=== PATIENT | male | born 1990 | race Hispanic/Latino ===

== ENCOUNTER 2017-11-17 15:07 | Emergency (ER) | payer SELFPAY ==
[~2017-11-17] VITALS: Ht 175.3 cm; Wt 97.1 kg
[2017-11-17] MEDS ORDERED: KETOROLAC TROMETHAMINE 60 MG/2 ML VIAL IM ONE (15:30)
[2017-11-17] MEDS ORDERED: CYCLOBENZAPRINE HCL 10 MG TAB PO ONE (15:30)
[2017-11-17] MEDS ORDERED: HYDROCODONE/APAP 10MG-325MG TAB PO ONE (15:30)
[2017-11-17] MEDS ORDERED: DEXAMETHASONE SOD PHOS 10 MG/1 ML VIAL INJ ONE (15:45)
[2017-11-17 17:03] VITALS: BP 127/88
== END 2017-11-17 17:09 | disposition home or self-care (01) ==
LOC: ER 15:07
DX: S39.012A Strain of muscle, fascia and tendon of lower back, initial encounter (principal)
CPT/HCPCS: 99282; J1100; J1885

== ENCOUNTER 2018-02-22 16:01 | Emergency (ER) | payer SELFPAY ==
[~2018-02-22] VITALS: Ht 175.3 cm; Wt 97.1 kg
[2018-02-22] MEDS ORDERED: KETOROLAC TROMETHAMINE 60 MG/2 ML VIAL IM ONE (16:15)
[2018-02-22] MEDS ORDERED: HYDROCODONE/APAP 7.5MG-325MG 1 EA TAB PO ONE (16:15)
[2018-02-22] MEDS ORDERED: DEXAMETHASONE SOD PHOS 10 MG/1 ML VIAL IV ONE (16:15)
[2018-02-22] MEDS ORDERED: CYCLOBENZAPRINE HCL 10 MG TAB PO ONE (18:30)
== END 2018-02-22 19:00 | disposition home or self-care (01) ==
LOC: ER 16:01
DX: M54.42 Lumbago with sciatica, left side (principal); M54.41 Lumbago with sciatica, right side; M54.16 Radiculopathy, lumbar region; X50.9XXA Other and unspecified overexertion or strenuous movements or postures, initial encounter; Y99.0 Civilian activity done for income or pay; F17.210 Nicotine dependence, cigarettes, uncomplicated
CPT/HCPCS: 99283; J1100; J1885

== ENCOUNTER 2020-07-10 20:06 | Emergency (ER) | payer SELFPAY ==
[~2020-07-10] VITALS: Ht 170.2 cm; Wt 86.2 kg
[2020-07-10] MEDS ORDERED: ACETAMINOPHEN 325 MG TAB PO ONE (20:30)
[2020-07-10] MEDS ORDERED: KETOROLAC TROMETHAMINE 30 MG/ML VIAL IM PRN (20:30)
[2020-07-10] MEDS ORDERED: LIDOCAINE 4% PATCH TP ONE (20:45)
[2020-07-10] MEDS ORDERED: LIDOPATCH1 EACH TOP (20:48)
[2020-07-11] MEDS ORDERED: LIDOCAINE 4% PATCH TP SCH (09:00)
== END 2020-07-10 21:28 | disposition home or self-care (01) ==
LOC: ER 20:12
DX: M54.5 Low back pain (principal); J45.909 Unspecified asthma, uncomplicated
CPT/HCPCS: 99283; J1885

== ENCOUNTER 2020-07-20 12:01 | Emergency (ER) | payer SELFPAY ==
[~2020-07-20] VITALS: Ht 170.2 cm; Wt 86.2 kg
[~2020-07-20 12:01] MED LIST: LIDOPATCH1 EACH TOP
== END 2020-07-20 17:16 | disposition home or self-care (01) ==
LOC: ER 14:20
DX: M54.5 Low back pain (principal); J45.909 Unspecified asthma, uncomplicated; F17.210 Nicotine dependence, cigarettes, uncomplicated
CPT/HCPCS: 99283

== ENCOUNTER 2021-10-20 20:09 | Emergency (ER) | payer SELFPAY ==
[~2021-10-20] VITALS: Ht 170.2 cm; Wt 86.2 kg
== END 2021-10-20 21:54 | disposition home or self-care (01) ==
LOC: ER 21:36
DX: F32.A Depression, unspecified (principal); J45.909 Unspecified asthma, uncomplicated
CPT/HCPCS: 99282

== ENCOUNTER 2024-05-05 10:39 | Emergency (ER) | payer SELFPAY ==
[~2024-05-05] VITALS: Ht 175.3 cm; Wt 90.7 kg
[2024-05-05 10:53] VITALS: PULSE 64; RESP 16
[2024-05-05 11:17] VITALS: TEMP 98.3
[2024-05-05 11:27] LABS: BASOPHILS # (AUTO) 0.1 (0.0-0.1); BASOPHILS % 0.3 % (0.0-1.0); EOSINOPHILS # (AUTO) 0.1 (0.0-0.4); EOSINOPHILS % 0.9 % (0.0-6.0); HEMATOCRIT 47.8 % (38.2-49.6); HEMOGLOBIN 15.7 g/dL (14.0-18.0); LYMPHOCYTES # (AUTO) 2.1 (1.0-3.2); LYMPHOCYTES % 14.6 % (18.0-39.1); MEAN CORPUSCULAR HEMOGLOBIN 30.3 pg (28-32); MEAN CORPUSCULAR HGB CONC 32.8 g/dL (31-35); MEAN CORPUSCULAR VOLUME 92.1 fL (81-99); MONOCYTES # (AUTO) 0.9 (0.2-0.8); MONOCYTES % 6.1 % (4.4-11.3); NEUTROPHILS # (AUTO) 11.4 (2.1-6.9); NEUTROPHILS % 77.7 % (38.7-80.0); PLATELET COUNT 309 x10e3/uL (140-360); RED BLOOD COUNT 5.19 x10e6/uL (4.3-5.7); RED CELL DISTRIBUTION WIDTH 13.1 % (11.7-14.4); WHITE BLOOD COUNT 14.69 x10e3/uL (4.8-10.8)
[2024-05-05] MEDS: SODIUM CHLORIDE 0.9% 1000ML 1,000 ML IV STA (11:29)
[2024-05-05] MEDS: ONDANSETRON HCL INJ 2MG/ML 2ML 2 MG/ML VIAL IV STA (11:29)
[2024-05-05 11:41] LABS: INR 0.96; PROTHROMBIN TIME 13.4 seconds (11.9-14.5)
[2024-05-05 11:42] LABS: PARTIAL THROMBOPLASTIN TIME 33.1 seconds (23.8-35.5)
[2024-05-05 11:52] LABS: ALBUMIN 4.4 g/dL (3.5-5.0); ALBUMIN/GLOBULIN RATIO 1.3 (0.8-2.0); ANION GAP 14.6 mmol/L (8-16); CALCIUM 9.6 mg/dL (8.4-10.2); CREATININE, SERUM 0.94 mg/dL (0.72-1.25); POTASSIUM 3.6 mmol/L (3.5-5.1); TOTAL PROTEIN 7.9 g/dL (6.5-8.1)
[2024-05-05 11:59] LABS: TROPONIN I 0.008 ng/mL (0-0.300)
[2024-05-05 12:00] LABS: AMPHETAMINES SCREEN,URINE POSITIVE (NEGATIVE); BENZODIAZEPINES SCREEN,URINE NEGATIVE (NEGATIVE); OPIATES SCREEN,URINE NEGATIVE (NEGATIVE); PHENCYCLIDINE SCREEN,URINE NEGATIVE (NEGATIVE)
[2024-05-05 12:01] LABS: CANNABINOIDS SCREEN,URINE NEGATIVE (NEGATIVE); COCAINE SCREEN,URINE NEGATIVE (NEGATIVE); METHADONE SCREEN, URINE NEGATIVE (NEGATIVE)
[2024-05-05] MEDS ORDERED: IOPAMIDOL 370 MG/ML 100 ML INFUS..BTL INJ ONE (12:10)
[2024-05-05 12:39] VITALS: PULSE 90; O2SAT 96
[2024-05-05 12:45] VITALS: BP 131/95
[2024-05-05] MEDS ORDERED: PANTOPRAZOLE SO40 MG PO (13:31)
[2024-05-05] MEDS ORDERED: DICYCLOMINE HCL20 MG PO (13:31)
[2024-05-05] MEDS ORDERED: ONDANSETRON ODT4 MG PO (13:31)
== END 2024-05-05 13:53 | disposition home or self-care (01) ==
LOC: ER 10:51
DX: R11.2 Nausea with vomiting, unspecified (principal); R10.10 Upper abdominal pain, unspecified; F15.10 Other stimulant abuse, uncomplicated; J45.909 Unspecified asthma, uncomplicated; M54.9 Dorsalgia, unspecified; G89.29 Other chronic pain; F17.200 Nicotine dependence, unspecified, uncomplicated
CPT/HCPCS: 36415; 71045; 74177; 80053; 80307; 82550; 83690; 83735; 84484; 85025; 85610; 85730; 93005; 99284; J2405; J2470; J7030; Q9967

== ENCOUNTER 2024-06-22 22:43 | Emergency (ER) | payer SELFPAY ==
[~2024-06-22] VITALS: Ht 175.3 cm; Wt 99.8 kg
[~2024-06-22 22:43] MED LIST changes: +DICYCLOMINE HCL20 MG PO; +ONDANSETRON ODT4 MG PO; +PANTOPRAZOLE SO40 MG PO
[2024-06-22 22:47] VITALS: TEMP 98.4
[2024-06-22 23:04] LABS: BASOPHILS # (AUTO) 0.1 (0.0-0.1); BASOPHILS % 0.3 % (0.0-1.0); EOSINOPHILS # (AUTO) 0.2 (0.0-0.4); EOSINOPHILS % 1.2 % (0.0-6.0); HEMATOCRIT 48.2 % (38.2-49.6); HEMOGLOBIN 15.4 g/dL (14.0-18.0); LYMPHOCYTES # (AUTO) 3.1 (1.0-3.2); LYMPHOCYTES % 20.7 % (18.0-39.1); MEAN CORPUSCULAR HEMOGLOBIN 30.5 pg (28-32); MEAN CORPUSCULAR VOLUME 95.4 fL (81-99); MONOCYTES # (AUTO) 1.1 (0.2-0.8); MONOCYTES % 7.2 % (4.4-11.3); NEUTROPHILS # (AUTO) 10.3 (2.1-6.9); NEUTROPHILS % 70.2 % (38.7-80.0); PLATELET COUNT 278 x10e3/uL (140-360); RED BLOOD COUNT 5.05 x10e6/uL (4.3-5.7); RED CELL DISTRIBUTION WIDTH 13.2 % (11.7-14.4); WHITE BLOOD COUNT 14.71 x10e3/uL (4.8-10.8)
[2024-06-22] MEDS: FAMOTIDINE 20 MG/2 ML VIAL IV STA (23:07)
[2024-06-22] MEDS: SODIUM CHLORIDE 0.9% 1000ML 1,000 ML IV STA (23:07)
[2024-06-22] MEDS: ONDANSETRON HCL INJ 2MG/ML 2ML 2 MG/ML VIAL IV STA (23:07)
[2024-06-22 23:27] LABS: ALBUMIN 4.3 g/dL (3.5-5.0); ALBUMIN/GLOBULIN RATIO 1.3 (0.8-2.0); ANION GAP 16.9 mmol/L (8-16); BILIRUBIN,TOTAL 0.5 mg/dL (0.2-1.2); CALCIUM 9.3 mg/dL (8.4-10.2); CREATININE, SERUM 0.89 mg/dL (0.72-1.25); POTASSIUM 3.9 mmol/L (3.5-5.1); TOTAL PROTEIN 7.6 g/dL (6.5-8.1)
[2024-06-22 23:29] LABS: BACTERIA,URINE MODERATE /HPF; BILIRUBIN,URINE NEGATIVE (NEGATIVE); CLARITY,URINE CLEAR (CLEAR); COLOR,URINE YELLOW (YELLOW); EPITHELIAL CELLS,URINE FEW /LPF; GLUCOSE, URINE NEGATIVE (NEGATIVE); KETONES,URINE NEGATIVE (NEGATIVE); LEUKOCYTE ESTERASE ,URINE NEGATIVE (NEGATIVE); NITRITE,URINE NEGATIVE (NEGATIVE); PH,URINE 6.5 (5 - 7); PROTEIN,URINE DIPSTICK NEGATIVE (NEGATIVE); RBC,URINE 0-5 /HPF (0-5); URINE UROBILINOGEN 0.2 mg/dL (0.2 - 1); WBC,URINE (MAN) 0-5 /HPF (0-5)
[2024-06-22 23:30] LABS: MUCUS,URINE MANY (RARE)
[2024-06-23 01:13] VITALS: PULSE 77; RESP 17
[2024-06-23] MEDS ORDERED: ONDANSETRON ODT4 MG PO (01:23)
[2024-06-23] MEDS ORDERED: ULTRAM 50MG50 MG PO (01:23)
[2024-06-23] MEDS ORDERED: PROTONIX40 MG PO (01:23)
[2024-06-23] MEDS ORDERED: AMOX TR-K CLV1 EAC2 PO (01:23)
[2024-06-23 01:37] VITALS: BP 116/67; PULSE 81; RESP 16; TEMP 98.2; O2SAT 97
== END 2024-06-23 01:35 | disposition home or self-care (01) ==
LOC: ER 22:46
DX: R10.11 Right upper quadrant pain (principal); K80.20 Calculus of gallbladder without cholecystitis without obstruction; R11.2 Nausea with vomiting, unspecified; J45.909 Unspecified asthma, uncomplicated; M54.9 Dorsalgia, unspecified; G89.29 Other chronic pain
CPT/HCPCS: 36415; 74177; 80053; 81001; 83690; 85025; 99284; J2405; J7030

== ENCOUNTER 2024-08-10 18:51 | Emergency (ER) | payer OTHER ==
[~2024-08-10] VITALS: Ht 175.3 cm; Wt 99.8 kg
[~2024-08-10 18:51] MED LIST changes: +AMOX TR-K CLV1 EAC2 PO; +PROTONIX40 MG PO; +ULTRAM 50MG50 MG PO
[2024-08-10 19:02] VITALS: PULSE 64; RESP 20; TEMP 98
[2024-08-10] MEDS: ONDANSETRON HCL INJ 2MG/ML 2ML 2 MG/ML VIAL IV STA (19:17)
[2024-08-10] MEDS: Morphine 4mg INJECTION 4 MG/ML INJ IV STA (19:17)
[2024-08-10 19:28] LABS: BASOPHILS % 0.4 % (0.0-1.0); EOSINOPHILS # (AUTO) 0.1 (0.0-0.4); EOSINOPHILS % 1.1 % (0.0-6.0); HEMATOCRIT 41.8 % (38.2-49.6); LYMPHOCYTES # (AUTO) 2.2 (1.0-3.2); LYMPHOCYTES % 19.6 % (18.0-39.1); MEAN CORPUSCULAR HEMOGLOBIN 29.9 pg (28-32); MEAN CORPUSCULAR HGB CONC 33.5 g/dL (31-35); MEAN CORPUSCULAR VOLUME 89.1 fL (81-99); MONOCYTES # (AUTO) 0.7 (0.2-0.8); MONOCYTES % 6.3 % (4.4-11.3); NEUTROPHILS # (AUTO) 8.2 (2.1-6.9); NEUTROPHILS % 72.3 % (38.7-80.0); PLATELET COUNT 362 x10e3/uL (140-360); RED BLOOD COUNT 4.69 x10e6/uL (4.3-5.7); RED CELL DISTRIBUTION WIDTH 13.5 % (11.7-14.4); WHITE BLOOD COUNT 11.35 x10e3/uL (4.8-10.8)
[2024-08-10 19:34] LABS: CLARITY,URINE CLEAR (CLEAR); COLOR,URINE YELLOW (YELLOW)
[2024-08-10 19:35] LABS: BILIRUBIN,URINE NEGATIVE (NEGATIVE); GLUCOSE, URINE NEGATIVE (NEGATIVE); KETONES,URINE NEGATIVE (NEGATIVE); LEUKOCYTE ESTERASE ,URINE NEGATIVE (NEGATIVE); NITRITE,URINE NEGATIVE (NEGATIVE); PH,URINE 8.5 (5 - 7); PROTEIN,URINE DIPSTICK 1+ (NEGATIVE); URINE UROBILINOGEN 1 mg/dL (0.2 - 1)
[2024-08-10 19:36] LABS: AMPHETAMINES SCREEN,URINE NEGATIVE (NEGATIVE); BENZODIAZEPINES SCREEN,URINE NEGATIVE (NEGATIVE); CANNABINOIDS SCREEN,URINE NEGATIVE (NEGATIVE); COCAINE SCREEN,URINE NEGATIVE (NEGATIVE); METHADONE SCREEN, URINE NEGATIVE (NEGATIVE); OPIATES SCREEN,URINE NEGATIVE (NEGATIVE); PHENCYCLIDINE SCREEN,URINE NEGATIVE (NEGATIVE)
[2024-08-10 19:43] LABS: AMORPHOUS SEDIMENT,URINE MODERATE; WBC,URINE (MAN) 0-5 /HPF (0-5)
[2024-08-10 19:53] LABS: ALBUMIN 4.1 g/dL (3.5-5.0); ALBUMIN/GLOBULIN RATIO 1.2 (0.8-2.0); ANION GAP 14.1 mmol/L (8-16); BILIRUBIN,TOTAL 0.3 mg/dL (0.2-1.2); CALCIUM 9.2 mg/dL (8.4-10.2); CREATININE, SERUM 1.12 mg/dL (0.72-1.25); POTASSIUM 4.1 mmol/L (3.5-5.1); TOTAL PROTEIN 7.5 g/dL (6.5-8.1)
[2024-08-10 21:20] VITALS: BP 144/87; PULSE 68; RESP 18; TEMP 97.3; O2SAT 100
== END 2024-08-10 21:21 | disposition home or self-care (01) ==
LOC: ER 19:02
DX: R10.13 Epigastric pain (principal); K80.20 Calculus of gallbladder without cholecystitis without obstruction; R11.2 Nausea with vomiting, unspecified; K76.0 Fatty (change of) liver, not elsewhere classified; J45.909 Unspecified asthma, uncomplicated; M54.9 Dorsalgia, unspecified; G89.29 Other chronic pain
CPT/HCPCS: 36415; 76705; 80053; 80307; 81001; 83690; 85025; 99284; J2270; J2405

== ENCOUNTER 2024-09-26 16:53 | Observation (INO) | payer OTHER ==
[~2024-09-26] VITALS: Ht 175.3 cm; Wt 95.3 kg
[2024-09-26 17:08] VITALS: TEMP 98.7
[2024-09-26 17:16] LABS: BASOPHILS # (AUTO) 0.1 (0.0-0.1); BASOPHILS % 0.5 % (0.0-1.0); EOSINOPHILS # (AUTO) 0.2 (0.0-0.4); EOSINOPHILS % 1.9 % (0.0-6.0); HEMATOCRIT 43.8 % (38.2-49.6); HEMOGLOBIN 14.9 g/dL (14.0-18.0); LYMPHOCYTES # (AUTO) 2.9 (1.0-3.2); LYMPHOCYTES % 22.9 % (18.0-39.1); MEAN CORPUSCULAR HEMOGLOBIN 29.3 pg (28-32); MEAN CORPUSCULAR VOLUME 86.1 fL (81-99); MONOCYTES # (AUTO) 0.9 (0.2-0.8); MONOCYTES % 6.9 % (4.4-11.3); NEUTROPHILS # (AUTO) 8.6 (2.1-6.9); NEUTROPHILS % 67.6 % (38.7-80.0); PLATELET COUNT 328 x10e3/uL (140-360); RED BLOOD COUNT 5.09 x10e6/uL (4.3-5.7); RED CELL DISTRIBUTION WIDTH 13.4 % (11.7-14.4); WHITE BLOOD COUNT 12.71 x10e3/uL (4.8-10.8)
[2024-09-26 17:37] LABS: ALBUMIN 4.1 g/dL (3.5-5.0); ALBUMIN/GLOBULIN RATIO 1.2 (0.8-2.0); ANION GAP 18.5 mmol/L (8-16); BILIRUBIN,TOTAL 0.4 mg/dL (0.2-1.2); CALCIUM 9.3 mg/dL (8.4-10.2); CREATININE, SERUM 1.07 mg/dL (0.72-1.25); POTASSIUM 3.5 mmol/L (3.5-5.1); TOTAL PROTEIN 7.4 g/dL (6.5-8.1)
[2024-09-26 17:39] LABS: INR 0.91; PROTHROMBIN TIME 12.8 seconds (11.9-14.5)
[2024-09-26 17:40] LABS: PARTIAL THROMBOPLASTIN TIME 32.4 seconds (23.8-35.5)
[2024-09-26 17:43] LABS: TROPONIN I 0.003 ng/mL (0-0.300)
[2024-09-26] MEDS: DIPHENHYDRAMINE HCL INJ 50 MG/ML VIAL IV ONE (18:02)
[2024-09-26] MEDS: HALOPERIDOL LACTATE 5 MG/ML VIAL IV ONE (18:02)
[2024-09-26] MEDS: SODIUM CHLORIDE 0.9% 1000ML 1,000 ML IV STA (18:02)
[2024-09-26] MEDS: ONDANSETRON HCL INJ 2MG/ML 2ML 2 MG/ML VIAL IV STA (18:02)
[2024-09-26] MEDS: Morphine 4mg INJECTION 4 MG/ML INJ IV STA (18:03)
[2024-09-26 20:34] LABS: AMPHETAMINES SCREEN,URINE NEGATIVE (NEGATIVE); BENZODIAZEPINES SCREEN,URINE NEGATIVE (NEGATIVE); CANNABINOIDS SCREEN,URINE NEGATIVE (NEGATIVE); COCAINE SCREEN,URINE NEGATIVE (NEGATIVE); METHADONE SCREEN, URINE NEGATIVE (NEGATIVE); OPIATES SCREEN,URINE POSITIVE (NEGATIVE); PHENCYCLIDINE SCREEN,URINE NEGATIVE (NEGATIVE)
[2024-09-26 20:35] LABS: CLARITY,URINE CLOUDY (CLEAR); COLOR,URINE YELLOW (YELLOW); LEUKOCYTE ESTERASE ,URINE NEGATIVE (NEGATIVE); PH,URINE 7 (5 - 7)
[2024-09-26 20:36] LABS: BILIRUBIN,URINE NEGATIVE (NEGATIVE); GLUCOSE, URINE NEGATIVE (NEGATIVE); KETONES,URINE 1+ (NEGATIVE); NITRITE,URINE NEGATIVE (NEGATIVE); PROTEIN,URINE DIPSTICK NEGATIVE (NEGATIVE); URINE UROBILINOGEN 0.2 mg/dL (0.2 - 1)
[2024-09-26] MEDS: Morphine 4mg INJECTION 4 MG/ML INJ IV ONE (20:40)
[2024-09-26 20:41] VITALS: PULSE 64; RESP 18
[2024-09-26] MEDS ORDERED: ONDANSETRON HCL INJ 2MG/ML 2ML 2 MG/ML VIAL IV PRN (21:45)
[2024-09-26] MEDS ORDERED: Morphine 4mg INJECTION 4 MG/ML INJ IV PRN (21:45)
[2024-09-26 22:34] VITALS: PULSE 94; RESP 18; O2SAT 98
[2024-09-27] VITALS (11 sets, daily range): BP systolic 90–118; BP diastolic 52–68; PULSE 69–96; RESP 17–20; TEMP 97.7–98.4; O2SAT 95–100
[2024-09-27] MEDS: SODIUM CHLORIDE 0.9% 1000ML 1,000 ML IV SCH (03:04)
[2024-09-27] MEDS ORDERED: HYDRALAZINE HCL 20 MG/ML VIAL IV PRN (03:45)
[2024-09-27 08:30] LABS: BASOPHILS % 0.3 % (0.0-1.0); EOSINOPHILS # (AUTO) 0.3 (0.0-0.4); EOSINOPHILS % 2.7 % (0.0-6.0); HEMOGLOBIN 13.8 g/dL (14.0-18.0); LYMPHOCYTES # (AUTO) 4.4 (1.0-3.2); LYMPHOCYTES % 43.4 % (18.0-39.1); MEAN CORPUSCULAR HGB CONC 32.9 g/dL (31-35); MEAN CORPUSCULAR VOLUME 88.2 fL (81-99); MONOCYTES # (AUTO) 0.8 (0.2-0.8); MONOCYTES % 7.7 % (4.4-11.3); NEUTROPHILS # (AUTO) 4.7 (2.1-6.9); NEUTROPHILS % 45.7 % (38.7-80.0); PLATELET COUNT 280 x10e3/uL (140-360); RED BLOOD COUNT 4.76 x10e6/uL (4.3-5.7); RED CELL DISTRIBUTION WIDTH 13.4 % (11.7-14.4)
[2024-09-27 08:49] LABS: ALBUMIN 3.5 g/dL (3.5-5.0); ALBUMIN/GLOBULIN RATIO 1.3 (0.8-2.0); ANION GAP 14.1 mmol/L (8-16); BILIRUBIN,TOTAL 0.6 mg/dL (0.2-1.2); CALCIUM 8.5 mg/dL (8.4-10.2); CREATININE, SERUM 1.02 mg/dL (0.72-1.25); POTASSIUM 4.1 mmol/L (3.5-5.1); TOTAL PROTEIN 6.3 g/dL (6.5-8.1)
[2024-09-27 09:20] LABS: CHOL/HDL RATIO 3.6 (3.9-4.7); PHOSPHORUS 3.8 MG/DL (2.3-4.7)
[2024-09-27 09:32] LABS: FREE T4 (FREE THYROXINE) 1.25 ng/dL (0.8-1.8); THYROID STIMULATING HORMONE 0.628 uIU/mL (0.350-4.940)
[2024-09-27] MEDS: SODIUM CHLORIDE 0.9% 1000ML 1,000 ML IV ONE (11:32)
== END 2024-09-27 16:00 | disposition home or self-care (01) ==
LOC: ER 17:28 → ERHOLD 21:46 → MED/SURG3 23:52
PROVIDERS: ADMIT Internal Medicine; ATTEND Internal Medicine
DX: K52.9 Noninfective gastroenteritis and colitis, unspecified (principal); K56.609 Unspecified intestinal obstruction, unspecified as to partial versus complete obstruction; R00.1 Bradycardia, unspecified; F15.10 Other stimulant abuse, uncomplicated; J45.909 Unspecified asthma, uncomplicated; M54.9 Dorsalgia, unspecified; G89.29 Other chronic pain
CPT/HCPCS: 36415 ×2; 70450; 71045; 72125; 74019; 74177; 80053 ×2; 80061; 80307; 81001; 82550; 83690; 83735; 84100; 84439; 84443; 84484; 85025 ×2; 85610; 85730; 93005; 94799 ×2; 99284; G0378 ×2; J1200; J1630; J2270; J2405; J2470; J7030 ×2

== ENCOUNTER 2024-10-05 13:30 | Inpatient (IN) | payer OTHER ==
[~2024-10-05] VITALS: Ht 175.3 cm; Wt 95.3 kg
[2024-10-05 13:50] VITALS: PULSE 72; RESP 17; TEMP 98.4
[2024-10-05 14:24] LABS: BASOPHILS % 0.2 % (0.0-1.0); EOSINOPHILS # (AUTO) 0.1 (0.0-0.4); EOSINOPHILS % 0.6 % (0.0-6.0); HEMATOCRIT 44.6 % (38.2-49.6); HEMOGLOBIN 15.3 g/dL (14.0-18.0); LYMPHOCYTES # (AUTO) 1.8 (1.0-3.2); LYMPHOCYTES % 14.4 % (18.0-39.1); MEAN CORPUSCULAR HEMOGLOBIN 29.5 pg (28-32); MEAN CORPUSCULAR HGB CONC 34.3 g/dL (31-35); MEAN CORPUSCULAR VOLUME 86.1 fL (81-99); MONOCYTES # (AUTO) 0.7 (0.2-0.8); MONOCYTES % 5.7 % (4.4-11.3); NEUTROPHILS # (AUTO) 9.9 (2.1-6.9); NEUTROPHILS % 78.8 % (38.7-80.0); PLATELET COUNT 350 x10e3/uL (140-360); RED BLOOD COUNT 5.18 x10e6/uL (4.3-5.7); RED CELL DISTRIBUTION WIDTH 13.2 % (11.7-14.4); WHITE BLOOD COUNT 12.53 x10e3/uL (4.8-10.8)
[2024-10-05 14:40] LABS: INR 0.85; PARTIAL THROMBOPLASTIN TIME 34.5 seconds (23.8-35.5); PROTHROMBIN TIME 12.2 seconds (11.9-14.5)
[2024-10-05 14:50] LABS: ALBUMIN 4.4 g/dL (3.5-5.0); ALBUMIN/GLOBULIN RATIO 1.3 (0.8-2.0); ANION GAP 16.5 mmol/L (8-16); BILIRUBIN,TOTAL 0.6 mg/dL (0.2-1.2); CALCIUM 9.1 mg/dL (8.4-10.2); CREATININE, SERUM 1.07 mg/dL (0.72-1.25); MAGNESIUM 2.1 MG/DL (1.3-2.1); POTASSIUM 3.5 mmol/L (3.5-5.1); TOTAL PROTEIN 7.8 g/dL (6.5-8.1)
[2024-10-05] MEDS ORDERED: IOPAMIDOL 370 MG/ML 100 ML INFUS..BTL INJ ONE (14:54)
[2024-10-05 14:59] LABS: TROPONIN I 0.003 ng/mL (0-0.300)
[2024-10-05] MEDS: DIPHENHYDRAMINE HCL INJ 50 MG/ML VIAL IV ONE (15:08)
[2024-10-05] MEDS: PROMETHAZINE 12.5MG/ NACL 0.9% 12.5 MG/50 ML BAG IV ONE (15:09)
[2024-10-05] MEDS: Morphine 4mg INJECTION 4 MG/ML INJ IV ONE (15:09)
[2024-10-05] MEDS: SODIUM CHLORIDE 0.9% 1000ML 1,000 ML IV STA (15:11)
[2024-10-05] MEDS ORDERED: PROMETHAZINE 12.5MG/ NACL 0.9% 12.5 MG/50 ML BAG IV PRN (19:00)
[2024-10-05] MEDS ORDERED: ONDANSETRON HCL INJ 2MG/ML 2ML 2 MG/ML VIAL IV PRN (19:00)
[2024-10-05 20:00] VITALS: BP 147/81; PULSE 74; RESP 18; TEMP 97.6; O2SAT 100
[2024-10-05] MEDS ORDERED: Morphine 4mg INJECTION 4 MG/ML INJ IV PRN ×2 (20:45→21:00)
[2024-10-05 21:00] VITALS: BP 147/81; PULSE 74; RESP 18; TEMP 97.6; O2SAT 100
[2024-10-05] MEDS: SODIUM CHLORIDE 0.9% 1000ML 1,000 ML IV SCH (21:14)
[2024-10-05 21:30] VITALS: BP 129/84; PULSE 78; RESP 18; TEMP 98.8; O2SAT 98
[2024-10-05 22:57] LABS: AMPHETAMINES SCREEN,URINE POSITIVE (NEGATIVE); BENZODIAZEPINES SCREEN,URINE NEGATIVE (NEGATIVE); COCAINE SCREEN,URINE NEGATIVE (NEGATIVE); OPIATES SCREEN,URINE POSITIVE (NEGATIVE); PHENCYCLIDINE SCREEN,URINE NEGATIVE (NEGATIVE)
[2024-10-05 22:58] LABS: CANNABINOIDS SCREEN,URINE POSITIVE (NEGATIVE); METHADONE SCREEN, URINE NEGATIVE (NEGATIVE)
[2024-10-05 23:02] LABS: BILIRUBIN,URINE NEGATIVE (NEGATIVE); CLARITY,URINE CLEAR (CLEAR); COLOR,URINE YELLOW (YELLOW); GLUCOSE, URINE NEGATIVE (NEGATIVE); KETONES,URINE NEGATIVE (NEGATIVE); LEUKOCYTE ESTERASE ,URINE NEGATIVE (NEGATIVE); NITRITE,URINE NEGATIVE (NEGATIVE); PH,URINE 6 (5 - 7); PROTEIN,URINE DIPSTICK NEGATIVE (NEGATIVE); URINE UROBILINOGEN 0.2 mg/dL (0.2 - 1)
[2024-10-05 23:19] LABS: RBC,URINE 0-5 /HPF (0-5); WBC,URINE (MAN) 0-5 /HPF (0-5)
[2024-10-06] VITALS: BP 110/67; PULSE 61; RESP 18; TEMP 97.9; O2SAT 99
[2024-10-06 04:00] VITALS: BP 108/50; PULSE 80; RESP 18; TEMP 98.2; O2SAT 96
[2024-10-06 05:05] LABS: BASOPHILS % 0.3 % (0.0-1.0); EOSINOPHILS # (AUTO) 0.2 (0.0-0.4); EOSINOPHILS % 2.5 % (0.0-6.0); HEMATOCRIT 39.1 % (38.2-49.6); HEMOGLOBIN 13.2 g/dL (14.0-18.0); LYMPHOCYTES % 45.9 % (18.0-39.1); MEAN CORPUSCULAR HEMOGLOBIN 29.2 pg (28-32); MEAN CORPUSCULAR HGB CONC 33.8 g/dL (31-35); MEAN CORPUSCULAR VOLUME 86.5 fL (81-99); MONOCYTES # (AUTO) 0.8 (0.2-0.8); MONOCYTES % 8.8 % (4.4-11.3); NEUTROPHILS # (AUTO) 3.7 (2.1-6.9); NEUTROPHILS % 42.4 % (38.7-80.0); PLATELET COUNT 298 x10e3/uL (140-360); RED BLOOD COUNT 4.52 x10e6/uL (4.3-5.7); RED CELL DISTRIBUTION WIDTH 13.2 % (11.7-14.4); WHITE BLOOD COUNT 8.78 x10e3/uL (4.8-10.8)
[2024-10-06 05:34] LABS: ALBUMIN 3.3 g/dL (3.5-5.0); ALBUMIN/GLOBULIN RATIO 1.2 (0.8-2.0); ANION GAP 13.1 mmol/L (8-16); BILIRUBIN,TOTAL 0.7 mg/dL (0.2-1.2); CALCIUM 8.1 mg/dL (8.4-10.2); CREATININE, SERUM 0.89 mg/dL (0.72-1.25)
[2024-10-06 05:37] LABS: POTASSIUM 3.1 mmol/L (3.5-5.1)
[2024-10-06 09:00] VITALS: BP 113/71; PULSE 77; RESP 17; TEMP 98.1; O2SAT 100
[2024-10-06 09:34] VITALS: BP 113/71; PULSE 77; RESP 17; TEMP 98.2; O2SAT 100
[2024-10-06 11:53] VITALS: BP 116/59; PULSE 75; RESP 17; TEMP 97.8; O2SAT 100
== END 2024-10-06 15:22 | disposition home or self-care (01) | DRG 446 ==
LOC: ER 14:00 → ERHOLD 19:00 → MED/SURG2 20:31
PROVIDERS: ADMIT Internal Medicine; ATTEND Internal Medicine
DX: K81.1 Chronic cholecystitis (principal); F15.10 Other stimulant abuse, uncomplicated; R11.2 Nausea with vomiting, unspecified; M54.30 Sciatica, unspecified side; F17.200 Nicotine dependence, unspecified, uncomplicated
CPT/HCPCS: 36415; 71045; 74177; 76705; 80053; 80307; 81001; 83690; 83735; 84484; 85025; 85610; 85730; 87040; 93005; 99284; G0378; J1200; J2270; J2470; J2543; J2550; J7030; Q9967